=== PATIENT | female | born 1965 | race Caucasian/White ===

== ENCOUNTER 2024-10-21 10:44 | Emergency (ER) | payer MEDICARE, MEDICAID, SELFPAY ==
--- NOTE | ~2024-10-21 | XR_ITS ---
EXAMINATION: XR RIBS, RIGHT CLINICAL INFORMATION: trauma COMPARISON: None available. TECHNIQUE: 3 views of the right ribs were obtained. AP chest. FINDINGS: Lungs are clear. No consolidation, pneumothorax, or pleural effusion. The cardiomediastinal silhouette and pulmonary vasculature are normal. Osseous structures are unremarkable. Ribs are intact. No fractures are identified. XR/XR ribs RT min 3V w CXR1V IMPRESSION: Normal chest. No rib fracture evident. Electronically signed by: Jacob Chambers MD 10/21/2024 03:38 PM EST
--- NOTE | ~2024-10-21 | CT_ITS ---
EXAMINATION: CT CERVICAL SPINE WITHOUT CONTRAST CLINICAL INFORMATION: Status post fall. COMPARISON: None available. TECHNIQUE: Contiguous axial images through the cervical spine using 3 mm collimation with bone and soft tissue algorithm. Sagittal and coronal reformatted images acquired. This CT examination was performed using dose optimization techniques as appropriate, variously including the following: *Automated exposure control *Adjustment of mA and/or kV according to patient size (this includes techniques or standardized protocols for targeted exams where dose is matched to indication/reason for exam; i.e. extremities or head) *Use of iterative reconstruction technique DLP: 223 mGy-cm FINDINGS: Limited by patient's positioning on the CT scanner. Craniocervical junction is intact. C1 is intact. C2 is intact. C3 is intact. C4 is intact. C5 is intact. C6 is intact. C7 is intact. Marginal osteophyte formation and endplate irregularity, subchondral cyst formation and decreased intervertebral disc height at C6-7. Reverse curvature apex at C6-7. Grade 1 anterolisthesis C4-5. Facet joint hypertrophy at C3-4, C4-5 and C5-6 levels mostly on the left side. No gross prevertebral compartment hematoma. Tympanic cavities and mastoid cells are aerated. Focal gas abnormality in the paraglottic compartment anteriorly. CT/CT cervical spine wo IV con IMPRESSION: Multilevel cervical spondylosis more conspicuous at C6-7 and grade 1 anterolisthesis C4-5 without gross acute fracture or or trauma-related listhesis. Paraglottic laryngoceles Fleischner guidelines were followed. Electronically signed by: Jw Li MD 10/21/2024 01:42 PM JANE
--- NOTE | ~2024-10-21 | CT_ITS ---
EXAMINATION: CT HEAD WITHOUT CONTRAST CLINICAL INFORMATION: fall on coumadin COMPARISON: CT dated November 02, 2016 TECHNIQUE: Contiguous axial imaging was performed from the skull base to vertex without intravenous administration of contrast. This CT examination was performed using dose optimization techniques as appropriate, variously including the following: *Automated exposure control *Adjustment of mA and/or kV according to patient size (this includes techniques or standardized protocols for targeted exams where dose is matched to indication/reason for exam; i.e. extremities or head) *Use of iterative reconstruction technique DLP: 611 mGy-cm FINDINGS: No acute intracranial hemorrhage, mass effect, midline shift, hydrocephalus or herniation. Dimas-white matter differentiation is normal. Posterior cranial fossa contents demonstrated no acute intracranial hemorrhage or mass effect. Sellar/suprasellar region demonstrated no gross masses or hemorrhage. Bony calvarium is intact. Skull base is intact. Tympanic cavities and mastoid cells are aerated. No air-fluid levels in the included paranasal sinuses. Stable lytic lesion in the right parietal bony diploe. CT/CT head/brain wo IV con IMPRESSION: No acute intracranial hemorrhage. Stable brain. Electronically signed by: Jw Li MD 10/21/2024 01:36 PM [facility]
--- OUTSIDE RECORDS SUMMARY | 2024-10-21 11:13 | XMS_ITS | Data Portability ---
Author Organization [place] - [facility], [facility] [employer] Address [address] [place] [address] Assessment Encounter Date Assessment Date Assessment LastModified by Organization Details LastModified Time 10/19/2023 10/19/2023 Reason for Encounter Limted/Emergency Encounter Date: 10/19/2023 Allergies Medications Treatment Planned Procedures D7140 - Extraction, erupted tooth or exposed root (elevation and/or forceps removal) Teeth: 4 Completed Procedures D0140 - Limited oral evaluation - problem focused D0220 - Intraoral - periapical first radiographic image Teeth: 3 D0230 - Intraoral - periapical each additional radiographic image Teeth: 11 30 Completed Procedures (cont.) Pt presents for limited exam.Medical and dental hx reviewed. ?? Pt gives a history of of being treatment planned for?? ext upper right side by her dentist. CC. : severe constant pain in upper left?? teeth, pointing to tooth # 11 3 PAs acquired, showing signs of PARL along the distal root of #18.?? Clinical exam reveals extensive decay approximating nerve from the buccal surface #4 but dentinal decay #10,#11. Tender to palpation and percussion #4. Possible acute apical periodontitis #4.?? Rec RCT, B/U and crown with an alternative for EXT. Pt wants to have the teeth extracted including #10 and #11 as well pt doesnt want to try and save the teeth is already on antibiotics and has an ange with OS in [place] for ext.Pt was dimissed in good condition with no complications from today's Tx. ?? N.V. see golf ball inspector: follow up.?? Additional Comments: Explained and discussed conditions, findings, and plan of care. Treating Provider DIPTI Martinez I attest that the treatment rendered today is completed and treatment met the standard of care. , 12:03 PM. [id number] Not available 10/22/2023 09:39:58 Plan of Treatment Reminders Order Date Submit Date Provider Last Modified By Organization Details Last Modified Time Details Appointments None record ed. Lab None record ed. Referral None record ed. Procedures None record ed. Surgeries None record ed. Imaging None record ed. Medication Orders None record ed. Patient TargetsNo targets recorded. Patient InstructionsNo instructions recorded. Reason for Referral None Reported. Medical Equipment None Reported. Vitals None Recorded Social History None recorded. Functional Status None recorded. Mental Status None recorded. Family History Nothing Reported. Medical History No medical history recorded. Gynecological HistoryNo gynecological history recorded. Obstetrics History GPAL:G 0 P 0 0 0 0 Past Encounters Encounter ID Performer Location Encounter Start Date Encounter Closed Date Diagnosis/Indication Diagnosis SNOMED-CT Code Diagnosis ICD10 Code [id number] [address] [id number] 10/19/2023 08:11:38 10/22/2023 09:40:03 Health Concerns Section Related Observation LastModified by Organization Detai ls LastModified Time None Recorded Concern Status LastModified by Organization Details LastModified Time None Recorded Advance Directives Directive None Recorded Payers Encounter Date Sequence Insurance Name Policy Number Policy Tolliver Covered Member ID Tolliver Member ID Guarantor Name 10/19/2023 *SELF PAY* Lyly Brown 10/19/2023 [employer] (MOVED TO HOLD) Lyly Brown [id number] Lyly Brown OBGyn Episode No OBEpisode recorded.
[2024-10-21 11:19] VITALS: BP 103/62; PULSE 79; RESP 18; TEMP 36.3; O2SAT 97; BMI 30.2
--- NOTE | 2024-10-21 11:25 | ECG_ITS ---
Test Reason : SYNCOPE Blood Pressure : / mmHG Vent. Rate : 074 BPM Atrial Rate : 074 BPM P-R Int : 168 ms QRS Dur : 072 ms QT Int : 402 ms P-R-T Axes : 030 -11 093 degrees QTc Int : 446 ms Normal sinus rhythm Nonspecific T wave abnormality Abnormal ECG When compared with ECG of 02-NOV-2016 23:12, Nonspecific T wave abnormality, worse in Anterolateral leads Referred By: Pola Caruso Electronically Signed By:YARY SAUCEDO
--- NOTE | 2024-10-21 11:25 | ED_ITS ---
HPI - General Adult General Chief complaint: Syncope Stated complaint: passed out hit head Time Seen by Provider: 10/21/24 19:46 Source: patient Mode of arrival: ambulatory Limitations: no limitations History of Present Illness ED Provider: Dr. Justina Rosales HPI narrative: Patient comes to the emergency room complaining of losing consciousness after she fell. Patient states that she is visiting her mother for the holidays. Patient states that she was helping her mother to put some bags from the floor into the bed, patient bend over and states that she started feeling very dizzy, patient lost her balance, fell and hit her head. Patient states that she lost consciousness and is on Coumadin. This happened approximately more than 48 hours ago. Patient states that she has a mild headache in pain in the right side of the ribs. Patient denies chest pain or shortness of breath. Patient states that she has had Multiple syncopal episodes in the past. Related Data Allergies Allergy/AdvReac Type Severity Reaction Status Date / Time amoxicillin [From AUGMENTIN] Allergy Unknown HIVES Verified 10/21/24 20:18 azithromycin [AZITHROMYCIN] Allergy Unknown HIVES Verified 10/21/24 20:18 clavulanic acid Allergy Unknown HIVES Verified 10/21/24 20:18 [From AUGMENTIN] Penicillins [PENICILLINS] Allergy Unknown HIVES Verified 10/21/24 20:18 potassium [POTASSIUM] Allergy Unknown HIVES Verified 10/21/24 20:18 red dye [RED DYE] Allergy Unknown HIVES Verified 10/21/24 20:18 seafood Allergy Unknown Rash Verified 10/21/24 20:18 Review of Systems 2 Review of Systems: Constitutional : No Weight loss, No Fever, No Chills, No Night Sweats, No Fatigue, No Malaise ENT/Mouth : No Hearing loss, No Ear Pain, No Nasal Congestion, No Sinus Pain, No Hoarseness, No sore throat, No Rhinorrhea, No Swallowing Difficulty Eyes: No Eye Pain, No Swelling, No Redness, No Foreign Body, No Discharge, No Vision Changes Cardiovascular : No Chest Pain, No SOB, No Dyspnea on Exertion, No Orthopnea, No Edema, No Palpitations Respiratory : No Cough, No Sputum, No Wheezing, No Smoke Exposure, No Dyspnea Gastrointestinal : No Nausea, No Vomiting, No Diarrhea, No Constipation, No abdominal Pain, No Hematochezia, No Melena Genitourinary : no irregular bleeding, No Dysuria, No Urinary Frequency, No Hematuria, No Urinary Incontinence, No Urgency, No Flank Pain, No Urinary Flow Changes, No Hesitancy Musculoskeletal : No joint pain, No Myalgias, No Joint Swelling Skin : No Skin Lesions, No rash Neuro : No Weakness, No Numbness, No Paresthesias, complaining of 1 syncopal episode after falling, at his time patient denies Dizziness, Complaining of Headache Psych : No Anxiety/Panic, No Depression, No SI/HI/AH/VH, No Social Issues, Heme/Lymph: No Bruising, No Bleeding,No Lymphadenopathy Endocrine : No Polyuria, No Polydipsia, No Temperature Intolerance [facility] Past Medical History Medical History (Updated 10/22/24 @ 00:30 by Justina Rosales MD) Asthma DVT (deep vein thrombosis) in Pulmonary embolism Anticoagulated on Coumadin Social History Social History Smoked in Last 30 Days: No Use of substances other than those prescribed or required for medical reasons: No Advance Directives: No Advance Directives Information Provided: No Patient : No Physical Exam ED Vital Signs: Vital Signs - 24 hr 10/21/24 11:19 10/21/24 19:40 10/21/24 19:40 Temperature 97.3 F 97.7 F Pulse Rate 79 63 Respiratory Rate 18 14 Blood Pressure 103/62 113/66 Pulse Oximetry 97 95 95 Oxygen Delivery Method Room Air Room Air Room Air 10/21/24 20:52 10/21/24 20:53 10/21/24 20:53 Temperature Pulse Rate 60 84 96 Respiratory Rate Blood Pressure 104/64 93/60 94/63 Pulse Oximetry Oxygen Delivery Method 10/21/24 22:18 10/22/24 00:16 10/22/24 00:16 Temperature 97.6 F Pulse Rate 64 61 77 Respiratory Rate 14 Blood Pressure 107/63 104/60 106/69 Pulse Oximetry 96 Oxygen Delivery Method Room Air 10/22/24 00:18 10/22/24 00:19 Temperature Pulse Rate 87 75 Respiratory Rate 20 Blood Pressure 99/65 104/60 Pulse Oximetry 96 Oxygen Delivery Method Room Air BMI result Body Mass Index 30.2 Const Other: Appearance: Alert. Oriented X3. No acute distress. Eyes: Pupils equal, round and reactive to light. ENT: Pharynx normal. Neck: Normal inspection. Neck supple. No lymph nodes noted. No crepitus CVS: Normal heart rate and rhythm. Pulses normal. Normal S1 and S2 Respiratory: No respiratory distress. Breath sounds normal. No Wheezing. No rales Abdomen: Soft and nontender. No rigidity. No distention. musculoskeletal: Reproducible pain to palpation on the lateral aspect of the ribs on the right Skin: Skin warm and dry. Normal skin color. Normal skin turgor. Extremities: No lower extremity edema. No Lacerations. No Rash Neuro: Oriented X 3. No motor deficit. No sensory deficit. Moving all extremities. No slurred speech. CN 2 through 12 grossly intact Psych: calm, cooperative, normal affect Course Course Course Narrative: RME, this is a rapid medical exam performed by Vito Caruso please refer to primary provider for complete H&P- patient reports a syncopal episode 2 days ago. She is on Coumadin. She complains of a headache and reports hitting her head. Neuro is intact. Plan for syncope workup including CT scan of the brain and C-spine. Medications Administered Discontinued Medications Generic Name Dose Route Start Last Admin Trade Name Rubenq PRN Reason Stop Dose Admin Acetaminophen 975 mg 10/21/24 22:11 10/21/24 22:19 Acetaminophen 325 Mg Tablet PO 10/21/24 22:12 975 mg ONCE ONE Administration Sodium Chloride 1,000 mls @ 999 mls/hr 10/21/24 20:52 10/21/24 22:05 Ns IVCONT 10/21/24 21:52 Infused .Q1H1M ONE Infusion Oxycodone HCl 5 mg 10/21/24 20:14 10/21/24 20:18 Oxycodone Hcl Immed Release 5 Mg Tablet PO 10/21/24 20:15 5 mg ONCE ONE Administration Medical Decision Making Medical Decision Making [facility] Narrative: my interpretation of head CT and cervical spine CT, no acute abnormality ribs x-ray did not show any acute abnormality my interpretation of labs: Normal hematology, chemistry shows a creatinine of 1.56 , per patient this is her baseline, history of chronic kidney disease stage 3. INR 2.6 at baseline, troponin negative, lipase negative - patient's orthostatics were normal based on numbers, however patient felt significantly lightheaded standing up. Patient receiving IV fluids at this time and we will repeat orthostatic vitals after IV fluids orthostatic vitals were repeated after IV fluids, patient states that she feels much better. Patient states that after the Tylenol her neck pain is gone, the pain in the ribs has also decreased. Patient likely had dizziness secondary to orthostatic hypotension. Patient states that she feels ready to be discharged. patient did not present with any other further neurological deficits, nondistended, TIA not suspected, wells criteria for pulmonary embolism is negative, PE is not suspected Differential Diagnosis Differential Diagnoses: The differential diagnosis associated with the presentation includes ( Orthostatic hypotension, mechanical fall) Admission/Observation Consideration of admission/observation: Escalation of care including admission/observation considered ( given the patient's initial presentation, observation was considered) Lab Data MDM Lab Attestation statement: I reviewed the patient's lab results. 10/21/24 12:41 10/21/24 12:41 Labs: Lab Results 10/21/24 10/21/24 Range/Units 12:41 12:45 WBC 6.8 (4.8-10.8) X10*3/uL RBC 3.93 L (4.20-5.50) X10*6/uL Hgb 12.3 (12.0-16.0) g/dl Hct 38.2 (37.0-47.0) % MCV 97.2 (80.0-98.0) fL MCH 31.3 (27.0-33.0) pg MCHC 32.2 (31.0-35.0) g/dl RDW 13.2 (11.0-16.0) % Plt Count 294 (160-400) X10*3/uL MPV 9.4 (9.4-12.3) fL Immature Gran % (Auto) 0.3 (0.0-0.4) % Neut % (Auto) 57.5 (45-73) % Lymph % (Auto) 32.5 (20-40) % [place] % (Auto) 7.2 (2-11) % Eos % (Auto) 1.8 (0-4) % Baso % (Auto) 0.7 (0-2) % Lymph # (Auto) 2.2 (1.2-4.9) X10*3/uL [place] # (Auto) 0.5 (0.1-1.2) X10*3/uL Eos # (Auto) 0.1 (0.0-0.4) X10*3/uL Baso # (Auto) 0.1 (0.0-0.2) X10*3/uL Abs Immat Gran (auto) 0.02 (0.00-0.03) X10*3/uL Absolute Neuts (auto) 3.9 (2.0-8.3) x10*3/uL Absolute Nucleated RBC 0.000 (0.0-0.012) X10*3/uL Nucleated RBC % (auto) 0.0 (0.0-0.2) /100WBC PT 30.5 H (10.9-12.4) SEC INR 2.6 H (0.9-1.1) Sodium 141 (135-145) mmol/L Potassium 4.4 (3.3-5.1) mmol/L Chloride 111 H (96-108) mmol/L Carbon Dioxide 23 (22-29) mmol/L Anion Gap 11 L (12-20) BUN 17 H (9-16) mg/dL Creatinine 1.56 H (0.5-1.4) mg/dL Estim Creat Clear Calc 42.2 Estimated GFR 34 Random Glucose 109 (60-115) mg/dL Calcium 9.5 (8.4-10.2) mg/dL Magnesium 2.1 (1.6-2.6) mg/dL Total Bilirubin 0.6 (0.0-1.0) mg/dL AST 20 (5-31) U/L ALT 20 (0-31) U/L Alkaline Phosphatase 80 (39-117) U/L Troponin I High Sens < 2.7 (<3.5-17.0) ng/L Total Protein 7.0 (6.5-8.0) g/dL Albumin 4.3 (3.5-5.0) g/dL Lipase 38 (8-78) U/L Urine Color Yellow Urine Appearance Clear Urine pH 5.5 (5.0-9.0) Ur Specific [place] 1.025 (1.005-1.025) Urine Protein Negative (Neg-Trace) mg/dL Urine Glucose (UA) Negative (Negative) mg/dL Urine Ketones Trace (Negative) mg/dL Urine Blood Moderate (2+) H (Negative) Urine Nitrite Negative (Negative) Ur Leukocyte Esterase Trace H (Negative) Urine RBC 6-10 H (0-2) /HPF Urine WBC 0-5 (0-5) /HPF Ur Squamous Epith Cells 3-5 (0-2) /HPF Urine Bacteria None Seen (None Seen) Hyaline Casts 0-2 (0-2) /LPF Independent Interpretation I performed an independent interpretation of an: CT Scan Radiology Impression Radiologist Impression: Multilevel cervical spondylosis more conspicuous at C6-7 and grade 1 anterolisthesis C4-5 without gross acute fracture or or trauma-related listhesis. Paraglottic laryngoceles No acute intracranial hemorrhage. Stable brain. Lungs are clear. No consolidation, pneumothorax, or pleural effusion. The cardiomediastinal silhouette and pulmonary vasculature are normal. Osseous structures are unremarkable. Ribs are intact. No fractures are identified. XR/XR ribs RT min 3V w CXR1V IMPRESSION: Normal chest. No rib fracture evident Critical Care Time Critical Care Time Critical Care Time: Yes Total Critical Care Time: 35 Attestation: Please follow-up with your primary care physician tomorrow. If you have any worsening or new symptoms, please return to the emergency room or call 911 Discharge Plan Discharge Clinical Impression: Orthostatic hypotension, Headache Patient Disposition: Home, Self-Care Instructions: Dizziness (ED) Additional Instructions: Please follow-up with your primary care physician tomorrow. If you have any worsening or new symptoms, please return to the emergency room or call 911 Print Language: Serbian
[2024-10-21 12:46] LABS: MANUAL DIFF FLAG NO
[2024-10-21 12:48] LABS: Basophils Absolute Auto 0.1 X10*3/uL (0.0-0.2); Basophils Percent Auto 0.7 % (0-2); Eosinophils Absolute Auto 0.1 X10*3/uL (0.0-0.4); Eosinophils Percent Auto 1.8 % (0-4); Hematocrit 38.2 % (37.0-47.0); Hemoglobin 12.3 g/dl (12.0-16.0); Imm Gran Abs Auto 0.02 X10*3/uL (0.00-0.03); Imm Gran Pct Auto 0.3 % (0.0-0.4); Lymphocytes Absolute Auto 2.2 X10*3/uL (1.2-4.9); Lymphocytes Percent Auto 32.5 % (20-40); Mean Corpuscular HGB Conc 32.2 g/dl (31.0-35.0); Mean Corpuscular Hemoglobin 31.3 pg (27.0-33.0); Mean Corpuscular Volume 97.2 fL (80.0-98.0); Mean Platelet Volume 9.4 fL (9.4-12.3); Monocytes Absolute Auto 0.5 X10*3/uL (0.1-1.2); Monocytes Percent Auto 7.2 % (2-11); Neutrophils Absolute Auto 3.9 x10*3/uL (2.0-8.3); Neutrophils Percent Auto 57.5 % (45-73); Platelet Count 294 X10*3/uL (160-400); Red Blood Count 3.93 X10*6/uL (4.20-5.50); Red Cell Distribution Width 13.2 % (11.0-16.0); White Blood Count 6.8 X10*3/uL (4.8-10.8)
[2024-10-21 12:54] LABS: INTERNATIONAL NORM RATIO 2.6 (0.9-1.1); Prothrombin Time 30.5 SEC (10.9-12.4)
[2024-10-21 13:07] LABS: Appearance Urine Clear; Color Urine Yellow; Glucose Urine UA Negative (Negative); Leukocyte Esterase Urine Trace (Negative); Nitrite Urine Negative (Negative); PH 5.5 (5.0-9.0); Specific Gravity - Urine 1.025 (1.005-1.025); UMIC TRIGGER UACC YES; Urine Blood Moderate (2+) (Negative); Urine Ketones Trace mg/dL (Negative); Urine Protein Negative (Neg-Trace)
[2024-10-21 13:08] LABS: Albumin Level 4.3 g/dL (3.5-5.0); Anion Gap 11 (12-20); Aspartate Amino Transferase 20 U/L (5-31); Bilirubin Total 0.6 mg/dL (0.0-1.0); Blood Urea Nitrogen 17 mg/dL (9-16); Calcium 9.5 mg/dL (8.4-10.2); Carbon Dioxide 23 mmol/L (22-29); Chloride 111 mmol/L (96-108); Creatinine Clr Calc Pharmacy 42.2; Estimated Glomerular Filt Rate 34; Glucose Random 109 mg/dL (60-115); Lipase 38 U/L (8-78); Magnesium 2.1 mg/dL (1.6-2.6); Potassium 4.4 mmol/L (3.3-5.1); Sodium 141 mmol/L (135-145)
[2024-10-21 13:10] LABS: Bacteria Urine None Seen (None Seen); Hyaline Casts Urine 0-2 /LPF (0-2); WBC Urine 0-5 /HPF (0-5)
[2024-10-21 13:18] LABS: Troponin-I High Sensitivity < 2.7 ng/L (<3.5-17.0)
[2024-10-21 13:24] LABS: Alanine Aminotransferase 20 U/L (0-31); Alkaline Phosphatase 80 U/L (39-117)
[2024-10-21 19:40] VITALS: BP 113/66; PULSE 63; RESP 14; TEMP 36.5; O2SAT 95
[2024-10-21] MEDS: oxyCODONE HCl Immed Release 5 MG TABLET PO (20:18)
[2024-10-21 20:52] VITALS: BP 104/64; PULSE 60
[2024-10-21 20:53] VITALS: BP 93/60; BP 94/63; PULSE 84; PULSE 96
[2024-10-21] MEDS: 0.9 % Sodium Chloride 1,000 ML 999 ML IVCONT (21:03)
[2024-10-21 22:18] VITALS: BP 107/63; PULSE 64; RESP 14; TEMP 36.4; O2SAT 96
[2024-10-21] MEDS: Acetaminophen 325 MG TABLET 975 MG PO (22:19)
[2024-10-22 00:16] VITALS: BP 104/60; BP 106/69; PULSE 61; PULSE 77
[2024-10-22 00:18] VITALS: BP 99/65; PULSE 87
[2024-10-22 00:19] VITALS: BP 104/60; PULSE 75; RESP 20; O2SAT 96
[2024-10-22 00:35] VITALS: BP 104/60; PULSE 75; RESP 20; TEMP 36.3; O2SAT 96
== END 2024-10-22 00:44 | disposition home or self-care (01) ==
PROVIDERS: Physician Assistant; Emergency Provider Emergency Medicine; PCP Internal Medicine
DX: S06.9X9A Unspecified intracranial injury with loss of consciousness of unspecified duration, initial encounter (principal); I95.1 Orthostatic hypotension; R07.81 Pleurodynia; R51.9 Headache, unspecified; R94.31 Abnormal electrocardiogram [ECG] [EKG]; M54.2 Cervicalgia; W19.XXXA Unspecified fall, initial encounter; Y93.89 Activity, other specified; Y92.89 Other specified places as the place of occurrence of the external cause; Y99.8 Other external cause status; Z79.899 Other long term (current) drug therapy; Z79.01 Long term (current) use of anticoagulants
CPT/HCPCS: 36415; 70450; 71101; 72125; 80053; 81001; 83690; 83735; 84484; 85025; 85610; 93005; 99284; 99285

== ENCOUNTER → 2024-10-21 11:25 | Outpatient (BNV) | payer MEDICARE, MEDICAID, SELFPAY | PROVIDERS: PCP Internal Medicine; Visit Provider Radiology Diagnostic Radiology | DX: M47.892 Other spondylosis, cervical region (principal); R51.9 Headache, unspecified; R55 Syncope and collapse; Z79.01 Long term (current) use of anticoagulants | CPT/HCPCS: 70450; 72125 ==

== ENCOUNTER → 2024-10-21 11:25 | Outpatient (BNV) | payer MEDICARE, MEDICAID, SELFPAY | PROVIDERS: PCP Internal Medicine; Visit Provider Internal Medicine | DX: R94.31 Abnormal electrocardiogram [ECG] [EKG] (principal) | CPT/HCPCS: 93010 ==